=== PATIENT | female | born 1995 | race Caucasian/White ===

== ENCOUNTER 2017-07-20 18:16 | Inpatient (IN) | payer OTHER ==
[~2017-07-20] VITALS: Ht 149.9 cm; Wt 57.2 kg
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
[2017-07-20 19:10] LABS: ABSOLUTE BASOPHIL COUNT 0 /CUMM (0.0-0.2); ABSOLUTE EOSINOPHIL COUNT 0.1 /CUMM (0.0-0.7); ABSOLUTE GRANULOCYTE CT 10.1 /CUMM (1.4-6.5); ABSOLUTE LYMPH COUNT 3.5 /CUMM (1.2-3.4); BASOPHIL % 0 % (0.0-2.0); GRANULOCYTE % 68.1 % (42.2-75.2); HEMATOCRIT 49.5 % (37-47); MEAN CORPUSCULAR HGB 30.4 PG (27.0-31.0); MEAN CORPUSCULAR HGB CONC 33.1 G/DL (33.0-37.0); MEAN CORPUSCULAR VOLUME 91.8 FL (81.0-99.0); MEAN PLATELET VOLUME 9.4 FL (7.4-10.4); PLATELET COUNT 321 /CUMM (130-400); RBC DISTRIBUTION WIDTH 12.9 % (11.5-14.5); RED BLOOD CELL CT 5.39 /CUMM (4.20-5.40); WHITE BLOOD CELL COUNT 14.8 /CUMM (4.8-10.8)
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
--- NOTE | 2017-07-21 01:43 | Admission Certification ---
Admission Certification Certification Statement - As attending physician, I certify that at the time of - admission, based on clinical presentation, severity of - symptoms, need for further diagnostic testing and - therapeutic interventions, and risk of adverse outcomes - without in-hospital treatment, in my clinical assessment, - this patient requires an acute hospital stay for a minimum - of two nights or longer. I have also considered psychsocial - factors such as support system, advanced age, financial - issues, cognitive issues, and failed out-patient treatments, - past re-admission history, safety of patient, and lack of - compliance as applicable. Specific rationale supporting this admission is: Suicidal Ideation
[2017-07-21 08:30] VITALS: BP 134/67
[2017-07-21 12:09] VITALS: BP 121/65
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
[2017-07-21 15:28] VITALS: BP 122/74
[2017-07-21 20:04] VITALS: BP 124/77
[2017-07-22 08:15] VITALS: BP 112/73
[2017-07-22 08:30] LABS: ABSOLUTE BASOPHIL COUNT 0 /CUMM (0.0-0.2); ABSOLUTE MONOCYTE COUNT 0.9 /CUMM (0.10-0.60)
[2017-07-22 09:21] LABS: ABSOLUTE EOSINOPHIL COUNT 0.5 /CUMM (0.0-0.7); ABSOLUTE GRANULOCYTE CT 4.4 /CUMM (1.4-6.5); ABSOLUTE LYMPH COUNT 4.7 /CUMM (1.2-3.4); BASOPHIL % 0.4 % (0.0-2.0); EOSINOPHIL % 5.1 % (0-5); GRANULOCYTE % 41.9 % (42.2-75.2); MEAN CORPUSCULAR HGB 30.2 PG (27.0-31.0); MEAN CORPUSCULAR HGB CONC 32.9 G/DL (33.0-37.0); MEAN CORPUSCULAR VOLUME 91.6 FL (81.0-99.0); PLATELET COUNT 263 /CUMM (130-400); RBC DISTRIBUTION WIDTH 13.1 % (11.5-14.5); RED BLOOD CELL CT 4.79 /CUMM (4.20-5.40); WHITE BLOOD CELL COUNT 10.6 /CUMM (4.8-10.8)
[2017-07-22 09:24] LABS: HEMATOCRIT 43.9 % (37-47)
[2017-07-22 12:06] VITALS: BP 127/68
--- NOTE | 2017-07-22 12:32 | CP SOUTH PROGRESS NOTE PSYCH ---
Psych (Inpt) Progress Note Progress Note 22-year-old single White female with a chief complaint of I had a fight with my boyfriend". He broke up with her the day before (07/16/2017) Pt. had increasing discord with her boyfriend over the past month. Since breakup , she was increasingly distraught. She claimed that she decided to kill herself, she claimed that she drove to [place] to buy a gun or get some coke, she was too scared and changed her mind then sought help. She notes that her boyfriend is her only support. She repeated several times, "I miss him so much," and "he is the only person I have." She is now denying SI or HI as he told her via text message that he is proud of her for seeking help and seemed to indicate that he would return to the relationship. Mental Status Examination: The patient was steady on her feet, younger than state age, cooperative, normal psychomotor activity, no agitation or retardation, she was cooperative, normal speech, talkative but not pressured, Seemed to show good range of affect, non- labile, appropriate, congruent, Mood is "better"/denied wishing or thinking of suicide, Denied homicidal ideation, denied hallucinations, denied feeling paranoid, there were no delusions, denied Difficulties with thought organization, none noted, Limited Insight, Impaired Judgment, alert and oriented to time, place and person, grossly intact memory but reported memory difficulties for which she takes aricept Impression and Plan: Pt with hx of MDD and anxiety with worsening mood leading to SI in the setting of breakup and interpersonal discord. DSM 5 Diagnosis(es): Major Depressive Disorder Unspecified Anxiety disorder Cognitive impairment (minor NCD) Treatment Plan: Increase Lexapro to 10 mg as previously responded well Resume Aricept (donepezil) 5 mg daily Safety checks Biopsychosocial assessment
--- NOTE | 2017-07-22 14:59 | SOCIAL WORKER PROG NOTE PSYCH ---
See Addendum Social Work Progress Note Progress Note 2:33pm This story writer met with patient. She stated that she came to the hospital due to "severe depression and anxiety","I don't want to hurt myself." Patient stated that she had an argument with her boyfriend, triggering her anxiety and depression further. She stated that while he had been living with her, he will live with his sister until next month to "give our relationship a break." Patient stated that she lives in [place] and would like an IOP near her home, possibly . 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 Patient stated that she spoke with nursing about this. Patient reported MJ use, "daily, about 1ounce per month" to manage her glaucoma, PTSD and anxiety. Patient stated that she is "working on getting my medical card." Patient was agreeable to a family meeting with her mother, Pita Siddiqi, .
[2017-07-22 15:44] VITALS: BP 135/77
[2017-07-22 19:53] VITALS: BP 116/74
[2017-07-23 07:50] VITALS: BP 128/83
--- NOTE | 2017-07-23 11:13 | DISCHARGE SUMMARY REPORT-PSYCH ---
Visit Information Visit Dates/Diagnosis' Admission Date: 07/20/17 Discharge Date: 07/23/17 Reason for Admission: voicing thoughts of suicide Psy Discharge Primary Diag: Major Depressive Disorder Psy Discharge Secondary Diag: Unspecified Anxiety Disor Mild Neurocognitive Disor, Mild Neurocognitive Disorder Hospital Course Significant Lab Findings: Lab Barbiturate Screen 539 NG/ML H 07/20/171857 Urine Cannabis Screen > 80.00 NG/ML H 07/20/171857 Course Complications: The patient did not have any complications while she was on Inpatient Psychiatry Consultations: The patient had a history and physical examination by the editing clerk while she was in Inpatient Psychiatry Allergies: Coded Allergies: Penicillins (Mild, hives 07/21/17) latex (Mild, unknown 07/21/17) sulfamethoxazole (From BACTRIM) (Mild, hives 07/21/17) trimethoprim (From BACTRIM) (Mild, hives 07/21/17) Hospital Course/TX Response: The patient had a relatively short length of stay. It seems that the patient's statements and threats where impulsive and directly related to breakup with boyfriend. The patient reported that her boyfriend is pretty much her only social support. Later on it was revealed that her mother is also support. Patient reported that her boyfriend broke up with her the day before Charlton's Day. She was very distraught about that and was crying days after that until her admission to Inpatient Psychiatry on July 20, 2017 (the breakup was on July 16, 2017) The patient showed rather speedy recovery when she was on the inpatient unit denying having any thoughts or intentions of suicide. Initial assessment was by Dr. Ramirez Capellan MD, on 07/21/17; her Impression and Plan: Pt with hx of MDD and anxiety with worsening mood leading to SI in the setting of breakup and interpersonal discord. - Include all active medical diagnosis that require tx DSM 5 Diagnosis(es): Major Depressive Disorder Unspecified Anxiety disorder Cognitive impairment (minor NCD) - Initial Tx Plan for Active Psych & Medical Conditions Treatment Plan: - Start lexapro 5mg as previously responded well - Need collateral from bf and clarification of relationship as primary support - PRNs for anxiety and sleep given On 07/22/2017, Lexapro was increase to 10 mg /day Resume Aricept (donepezil) 5 mg daily Safety checks Biopsychosocial assessment On 07/23/2017: Vital Signs Date Time Temp Pulse Resp B/P B/P Pulse O2 O2 Flow FiO2 Mean Ox Delivery Rate 07/23 0750 97.3 68 128/83 07/22 1953 97.1 74 116/74 07/22 1544 77 135/77 07/22 1206 68 127/68 07/22 0815 98.0 75 112/73 July 23, 2017 Vital Signs on 07/23/2017 @ 07:50 AM: Temp: 97.3; Pulse: 68/min; BP: 128/83 mmHg No new labs in the past 24 hours Nursing staff, social work staff, group and activity therapy staff, and psychiatrist discussed the patient's progress, treatment plan, and discharge plan/aftercare Mental Status Examination: Katie was alert and oriented to time, place, and person. She was steady on her feet, cooperative, and showed normal psychomotor activity. There was no agitation and her speech was normal. She showed good range of affect, non-labile, appropriate, congruent, mood is "better"/denied wishing or thinking of suicide, she denied homicidal ideation, denied hallucinations, denied feeling paranoid, there were no delusions, denied difficulties with thought organization, Katie has difficulties with attention and concentration Assessment: Katie is a 22-year-old single White female with a chief complaint of I had a fight with my boyfriend". He broke up with her the day before (). Since breakup, she was increasingly distraught. She claimed that she decided to kill herself; she claimed that she drove to [place] to buy a gun or get some coke, she was too scared and changed her mind then sought help. Audelia has been denying SI since her admission. Likely Diagnose: 1) Major Depressive Disorder 2) Unspecified Anxiety disorder 3) Mild Neurocognitive Disorder Treatment Plan: The patient may be discharged home to follow up with [facility] IOP Discharge Medications 1) Donepezil HCl 5 MG AT BEDTIME 2) Escitalopram Oxalate 10 MG DAILY 3) Concerta 18 mg once daily in AM Discharge HBIPS - Tobacco Use Treatment Offered Post DC Medications Offered: Refused Tob Medication Tx Post DC Tobacco Treatment Plan: Refused Tobacco Tx Pgm - EtOH/Drug Use D/O Treatment Offered Post DC Medications Offered: NA-No EtOH/Drug Use D/O Post DC EtOH/SubAbuse TX Plan: NA-No EtOH/Drug Use D/O Metabolic Screening - Screen if on a Neuroleptic Medication - Metabolic screening should include: - Blood Pressure, BMI, Glucose or Hgb A1c, & a - Lipid profile from within the past 365 days. Metabolic Screening ([X]) Not Applicable, patient not on a neuroleptic. Discharge Instructions General Discharge Information Multiple Neuroleptics: ([X]) Not Applicable Discharge Diet Regular Discharge Activity Normal DC Disposition: Home Referrals Ordered Referrals Provider Referral 07/24/17 For Providers: [[facility]] For Groups: [[facility]] [address], [place] [phone] Intake: 07/24/17, at 11am (please arrive at 10:45am) Prescriptions Start taking the following new medications: Donepezil HCl (Aricept) 5 MG TABLET 5 Milligram ORAL AT BEDTIME Qty = 15 No Refills Comments: Last Taken:07/22/17 Time:2200 Escitalopram Oxalate (Lexapro) 10 MG TABLET 10 Milligram ORAL DAILY Qty = 15 No Refills Comments: Last Taken:07/23/17 Time:0800 Methylphenidate HCl (Concerta) 18 MG TAB.ER.24 1 Tablet ORAL Every Morning Qty = 15 No Refills Comments: Last Taken:NOT GIVEN IN THE HOSPITAL Time: Studies Pending at Discharge None Copies To: [facility]
[2017-07-23] MEDS ORDERED: LEXAPRO10 M1 PO (11:25)
[2017-07-23] MEDS ORDERED: CONCERTA18 M1 PO (11:25)
[2017-07-23] MEDS ORDERED: ARICEPT5 M1 PO (11:25)
--- NOTE | 2017-07-23 11:29 | Patient Discharge Instructions ---
Psych Discharge Inst General Discharge Information Reason for Admission: voicing thoughts of suicide Psy Discharge Primary Diag+ Major Depressive Disorder Psy Discharge Secondary Diag+ Unspecified Anxiety Disor Mild Neurocognitive Disor Mild Neurocognitive Disorder Summary Tests/Major Procedures The urine toxicology showed cannabis and barbiturates,, otherwise, there were no significant abnormal abnormalities in the lab and urine tests Studies Pending at DC: None Patient Instructions Contact Information Your Psychiatrist on [facility] was Ravinder Boudreaux MD * If you are experiencing an emergency related to this hospitalization, please call [phone] to contact the treating psychiatrist or the psychiatrist-on- call. * To Request a copy of your medical records, please contact the Medical Records Department at [phone]. * To request results of studies pending at the time of discharge, please call [phone]. * Continue your Medications until directed to stop by your Healthcare provider. General Medication Information Please continue to take your new medications and your continued home medications , unless otherwise indicated on your discharge medication list, or unless directed by your MD or RETURNING OFFICER to stop them. Special Instructions Diet Regular Activity Normal - Tobacco Use Treatment Offered Post DC Medications Offered: Refused Tob Medication Tx Post DC Tobacco Treatment Plan: Refused Tobacco Tx Pgm - EtOH/Drug Use D/O Treatment Offered Post DC Medications Offered: NA-No EtOH/Drug Use D/O Post DC EtOH/SubAbuse TX Plan: NA-No EtOH/Drug Use D/O Advance Directives Does the Patient have Medical Advance Directives No/Refused further info Does Pt have Psychiatric Advance Directives? No/Refused further info Does Patient have a Designated Surrogate Decision Maker: No Information About Psychiatric Advance Directives Provided? Refused Discharge Plan Post Hospital Treatment Plan: Home with follow up at [facility]'s IOP
[2017-07-23 12:11] VITALS: BP 118/66
[2017-07-23 15:37] VITALS: BP 118/61
--- NOTE | 2017-07-23 18:06 | SOCIAL WORKER PROG NOTE PSYCH ---
Social Work Progress Note Progress Note This staff writer met with patient prior to the phone meeting with her mother. She expressed interest in discharging today and following up with [facility] at [facility] ([facility]). Patient denied SI and denied plans, means or intent. Regarding her report to [facility] in which she stated that she would go to [place] to find drugs and a gun, patient denied any thoughts or intent to do so. She stated, "I don't even like guns. I'm scared of them." Patient denied any access to weapons or means, plan or intent. Patient denied HI/AH/VH. She identified a safety plan consisting of "I always go to my mom for everything." Patient was informed that she would be provided with crisis numbers and warm line numbers upon discharge and agreed to utilize them. Patient reported use of 211 in the past and finding them helpful and supportive. This staff writer discussed patient's mother's concerns about medication compliance with the patient. Patient stated that she has struggled to remember to take her medications in the past, but found that keeping an alarm on her phone is helpful and will continue to do so. She did not feel that she needed a visiting nurse at this time. 10:45am Dr. Boudreaux and this staff writer met with the patient and her mother; patient's mother attended by phone. Patient's mother expressed concerns about medication compliance. Patient's mother was informed of the plan that the patient would keep an alarm on her phone. Dr. Boudreaux addressed medication questions and concerns, and also discussed the possibility of adding a stimulant. Patient's mother did not have any concerns about the patient discharging today. The safety plan was reviewed. In addition, patient's mother was not willing or able to have the patient stay with her at home, however, stated that they would maintain regular contact as they had been doing. Discharge plans were reviewed with the patient and her mother regarding the IOP intake at [facility] tomorrow at 11am. Patient's mother stated that she would leave bus fare in the patient's apartment in order for her to get to the intake tomorrow. Patient was also informed of the smoking cessation group that meets at every other Saturday with the next group meeting tomorrow at 4pm. Patient expressed interest and was provided with the address and phone number. 12:53pm This staff writer spoke with Rohan with [employer], . Patient's ride was scheduled for 3pm today with a reference number of [id number]. Patient's ride was delayed, however, did retrieve the patient from [facility]. Patient's mother was informed of this by phone by nursing staff. Faxed Referral(s) Referred To: [facility] Transition of Care Documents sent: Health Summary Faxed to: Paul Souza Fax #: [phone] Faxed by: Mena Ayon LCSW Date faxed: 07/23/17 Time Faxed: [phone]
== END 2017-07-23 16:50 | DRG 754 ==
LOC: ERH 18:16 → CP SOUTH 21:06 → ERHI 21:06 → ENTRNSPT 22:17 → CP SOUTH 22:52 → CMPTRNSPT 07-21 07:00 → CP SOUTH 07-22 10:01
PROVIDERS: Physician Assistant; Student in an Organized Health Care Education/Training Program
DX: F32.9 Major depressive disorder, single episode, unspecified (principal); F41.9 Anxiety disorder, unspecified; G31.84 Mild cognitive impairment of uncertain or unknown etiology
CPT/HCPCS: 36415; 80307; 81025; G0480